=== PATIENT | male | born 1965 ===

== ENCOUNTER 2016-12-24 13:36 | Emergency (ER) | payer OTHER ==
[2016-12-24 13:36] VITALS: BMI 38.1
[2016-12-24 13:43] VITALS: BP 121/86; PULSE 63; RESP 18; TEMP 98; O2SAT 98
--- NOTE | 2016-12-24 14:11 | C.PDOC ---
History Of Present Illness 51 year old male presents to the emergency room s/p a needle stick prior to arrival. 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 and reports that he had a needle stick while cleaning up after a procedure. Notes he is up to date on vaccinations including hepatitis and TD. Patient denies any fever, headaches, dizziness, shortness of breath, or any other complaints. Time Seen by Provider: 12/24/16 13:53 Chief Complaint (Nursing): Needle Stick History Per: Patient History/Exam Limitations: no limitations Onset/Duration Of Symptoms: Hrs Current Symptoms Are (Timing): Still Present Severity: Mild Recent travel outside of the [place]: No Past Medical History Reviewed: Historical Data, Nursing Documentation, Vital Signs Vital Signs: Last Vital Signs Temp 98 F 12/24/16 13:39 Pulse 63 12/24/16 13:39 Resp 18 12/24/16 13:39 BP 121/86 12/24/16 13:39 Pulse Ox 98 12/24/16 16:47 - Medical History PMH: Arthritis, Colonic Polyps, HTN Surgical History: Appendectomy (1980), Endoscopy - [facility] Procedures EXCISION OF PILONID CYST (11/20/13) EXCISION OF STOMACH, PERCUTANEOUS ENDOSCOPIC APPROACH, VERT (05/24/16) REMOVAL OF EXTRALUM DEV FROM STOMACH, PERC ENDO APPROACH (02/02/16) REPAIR LEFT DIAPHRAGM, PERCUTANEOUS ENDOSCOPIC APPROACH (05/24/16) REPAIR RIGHT DIAPHRAGM, PERCUTANEOUS ENDOSCOPIC APPROACH (05/24/16) Family History: States: No Known Family Hx - Social History Hx Alcohol Use: No Hx Substance Use: No Review Of Systems Except As Marked, All Systems Reviewed And Found Negative. Constitutional: Negative for: Fever, Chills Cardiovascular: Negative for: Chest Pain Respiratory: Negative for: Shortness of Breath Gastrointestinal: Negative for: Nausea, Vomiting, Diarrhea Skin: Positive for: Other (Needle stick) Neurological: Negative for: Headache, Dizziness Physical Exam - Physical Exam Appears: Non-toxic, No Acute Distress Skin: No Rash, Other (Puncture to right web space between 1st and 2nd digits. No active bleeding. ) Head: Atraumatic, Normacephalic Eye(s): bilateral: Normal Inspection, EOMI Nose: Normal Oral Mucosa: Moist Chest: Symmetrical Respiratory: No Accessory Muscle Use Extremity: Normal ROM, No Tenderness, Capillary Refill (< 2 sec), Swelling Neurological/Psych: Oriented x3, Normal Speech, Normal Cognition, Normal Sensation ED Course And Treatment - Laboratory Results Result Diagrams: 12/24/16 14:14 12/24/16 14:14 O2 Sat by Pulse Oximetry: 98 Progress Note: Wound was cleansed and dressed. Prophylaxis was offered. Discussed risks and benefits. Person's blood from who the needle stick was tested and came back negative for HIV. Patient elects to not have prophylaxis and will follow up with PMD in 1-2 days. Pt is on ocumadin s/p valve replacement. INR within theraputic range. Case discussed with Dr Reno, agreed upon plan an discharge. Disposition - Disposition Disposition: HOME/ ROUTINE Disposition Time: 14:09 Condition: STABLE Additional Instructions: Follow up with your primary medical doctor or clinic in 2-5 days for further evaluation. Take medications as prescribed. Return to the emergency department at any time if symptoms persist or worsen. Instructions: Needle Stick Injuries (ED) - Clinical Impression Clinical Impression: Needle stick injury - Scribe Statement The provider has reviewed the documentation as recorded by the Scribtom Hoskins All medical record entries made by the Silviaibtom were at my direction and personally dictated by me. I have reviewed the chart and agree that the record accurately reflects my personal performance of the history, physical exam, medical decision making, and the department course for this patient. I have also personally directed, reviewed, and agree with the discharge instructions and disposition.
[2016-12-24 14:29] LABS: INR 3.4
[2016-12-24 14:31] LABS: BASO % 0.2 % (0.0-2.0); EOS # 0.1 K/uL (0.0-0.7); EOS % 0.9 % (0.0-4.0); HEMATOCRIT 43.8 % (35.0-51.0); LYMPH # 2.3 K/uL (1.0-4.3); MEAN CELL VOLUME 87.7 fL (80.0-94.0); MEAN CORPUSCULAR HEMOGLOBIN 29.7 pg (27.0-31.0); MEAN CORPUSCULAR HGB CONC 33.8 g/dL (33.0-37.0); MEAN PLATELET VOLUME 8.5 fL (7.2-11.7); MONO # 0.6 K/uL (0.0-0.8); MONO % 7.3 % (0.0-10.0); NRBC % 0.1 % (0.0-2.0); RED CELL DISTRIBUTION WIDTH 14.1 % (11.5-14.5); WHITE BLOOD COUNT 8.1 K/uL (4.8-10.8)
[2016-12-24 14:40] LABS: URINE COLOR YELLOW (YELLOW)
[2016-12-24 14:41] LABS: URINE BILIRUBIN NEGATIVE (NEGATIVE); URINE BLOOD 1+ (NEGATIVE); URINE GLUCOSE (UA) Normal (Normal); URINE KETONE NEGATIVE (NEGATIVE); URINE LEUKOCYTE ESTERASE Negative Leu/uL (Negative); URINE PROTEIN NEGATIVE (NEGATIVE); URINE UROBILINOGEN Normal mg/dL (0.2-1.0)
[2016-12-24 14:42] LABS: RBC URINE 9 /hpf (0-3); WBC URINE < 1 /hpf (0-5)
[2016-12-24 14:56] LABS: CHLORIDE 101 mmol/L (98-107); POTASSIUM 4.4 mmol/L (3.6-5.2); SODIUM 137 mmol/L (132-148)
[2016-12-24 14:58] LABS: AMYLASE 95 U/L (30-110); CARBON DIOXIDE 24 mmol/L (22-30); GFR AFRICAN-AMERICAN > 60
[2016-12-24 14:59] LABS: ALB/GLOB RATIO 1.4 (1.0-2.1); ALKALINE PHOSPHATASE 103 U/L (38-126); ALT/SGPT 25 U/L (21-72); AST/SGOT 32 U/L (17-59); BILIRUBIN,TOTAL 0.9 mg/dL (0.2-1.3); BLOOD UREA NITROGEN 18 mg/dL (9-20); CALCIUM 9.1 mg/dl (8.6-10.4); GLUCOSE,RANDOM 84 mg/dL (75-110); TOTAL PROTEIN 7.4 g/dL (6.3-8.3)
== END 2016-12-24 15:11 | disposition home or self-care (01) ==
LOC: C.ER 13:36
DX: S61.431A Puncture wound without foreign body of right hand, initial encounter (principal); W46.0XXA Contact with hypodermic needle, initial encounter; Y93.89 Activity, other specified; Y92.239 Unspecified place in hospital as the place of occurrence of the external cause; Y99.0 Civilian activity done for income or pay

== ENCOUNTER 2018-09-20 08:09 | Outpatient (CLI) | payer OTHER | END 2018-09-20 08:10 | disposition home or self-care (01) | LOC: C.LAB 08:09 | DX: E78.5 Hyperlipidemia, unspecified (principal) ==

== ENCOUNTER 2018-12-02 17:29 | Outpatient (CLI) | payer OTHER | END 2018-12-02 17:30 | disposition home or self-care (01) | LOC: C.CTH 17:30 ==